=== PATIENT | female | born 1945 | race Caucasian/White ===

== ENCOUNTER 2018-06-10 11:23 | Inpatient (IN) ==
[2018-06-10] MEDS ORDERED: Sodium Chlor 0.9% Inj 250 ML ONE (12:12)
[2018-06-10] MEDS ORDERED: Lidocaine PF 1% Inj 5 ML Vial ONE (13:11)
[2018-06-10] MEDS ORDERED: Bupivacaine Liposomal PF 1.3% Inj 20 ML Vial ONE (13:11)
[2018-06-10] MEDS ORDERED: Bupivacaine 0.5% Inj 50 ML MDV Vial ONE (13:11)
[2018-06-10] MEDS ORDERED: Bupivacaine/Dextrose 0.75% Inj 2 ML Ampul ONE (13:28)
[2018-06-10] MEDS ORDERED: ceFAZolin 2 GM Premix Inj 2 GM/50 ML PIGGYBACK IV.SIG ONE (13:28)
[2018-06-10] MEDS ORDERED: Sodium Chlor 0.9% Inj 73.07 ML, Ropivacaine 0.5% PF Inj 24.63 ML, Ketorolac Inj 30 MG, ... P-ARTICULR SCH ×5 (13:30)
[2018-06-10] MEDS ORDERED: Chlorhexidine 4% Topical 120 APPLIC/120 ML Bottle TOPICAL SCH (13:30)
[2018-06-10] MEDS ORDERED: Propofol Inj 500 MG/50 ML Vial ONE (13:31)
[2018-06-10] MEDS ORDERED: Metoprolol Tartrate 25 MG Tablet PO ONE (13:38)
[2018-06-10] MEDS ORDERED: Chlorhexidine Gluconate 2% 1 Pack (2 Cloths) TOPICAL ONE (13:38)
[2018-06-10] MEDS ORDERED: Vancomycin Inj 1,000 MG in Sodium Chlor 0.9% Inj 250 ML IV.SIG SCH (14:00)
[2018-06-10] MEDS ORDERED: ceFAZolin 2 GM Premix Inj 2 GM/50 ML PIGGYBACK IV.SIG SCH (14:00)
[2018-06-10] MEDS ORDERED: Sodium Chlor 0.9% Inj 500 ML IV.SIG SCH (14:00)
[2018-06-10] MEDS ORDERED: Lidocaine PF 1% Inj 5 ML Syringe OTHER ONE (14:25)
[2018-06-10] MEDS ORDERED: Glycopyrrolate Inj 1 MG/5 ML Syringe IV.PUSH ONE (14:25)
[2018-06-10] MEDS ORDERED: Neostigmine Inj 5 MG/5 ML Syringe IV.PUSH ONE (14:25)
[2018-06-10] MEDS ORDERED: Post-op Orders (for Pharmacy) OTHER STA (16:51)
[2018-06-10] MEDS ORDERED: Morphine Inj 4 MG/ML Vial IV.PUSH PRN (16:51)
[2018-06-10] MEDS ORDERED: Bisacodyl 10 MG Supp RECTAL PRN (16:51)
[2018-06-10] MEDS ORDERED: fentaNYL Citrate Inj 100 MCG/2 ML Ampul ONE (16:54)
[2018-06-10] MEDS ORDERED: *morphine SULFATE 4 MG/ML PERIprocedure ONLY ONE ×2 (16:56→17:46)
--- NOTE | 2018-06-10 17:24 | XR ---
EXAM DATE: 06/10/2018 5:22 PM EST AGE/SEX: 72 years / Female INDICATIONS: Post op left knee. CLINICAL DATA: This is the patient's initial encounter. Patient reports that signs and symptoms have been present for 1 day and indicates a pain score of Nonresponsive. MEDICAL/SURGICAL HISTORY: None. None. COMPARISON: No prior exams available for comparison. FINDINGS: AP and lateral views of the knee following arthroplasty reveals a prosthesis in anatomic alignment. F racture is not appreciated. Large joint effusion is evident CONCLUSION: Status post total knee arthroplasty. Wilmer Farah MD FACR Electronically signed by: Wilmer Farah MD 06/10/2018 5:23 PM EST
--- NOTE | 2018-06-10 17:34 | MP ---
cc: Rm Romero MD, Jason MD DATE OF OPERATION: 06/10/2018 PREOPERATIVE DIAGNOSES: 1. Left knee moderately severe tricompartment osteoarthritis. 2. Obesity. POSTOPERATIVE DIAGNOSES: 1. Left knee moderately severe tricompartment osteoarthritis. 2. Obesity. PROCEDURE PERFORMED: Left total knee arthroplasty - cemented [employer]. SURGEON: Rm Romero MD STRANDING SUPERVISOR: Tiffany Crespo PA-C TOURNIQUET TIME: 54 minutes at 250 mmHg. ANESTHESIA: General, adductor canal saphenous nerve block, intraarticular block. COMPLICATIONS: None. SPECIMENS: None. DESCRIPTION OF PROCEDURE: My [facility] faculty assistant, Tiffany Crespo PA-C, was present for the entire surgical case. She was medically necessary for the entire case because of the complexity of the case and to facilitate the performance of the procedure. The TORCH HEATER at the back table did not have the skill set for this case to manipulate the instruments, e.g. multiple soft tissue retractors, trial implants and permanent implants, including bone cement. The patient was brought in the operating room and had satisfactory general endotracheal anesthesia by the Department of Anesthesia. Because of the patient's obesity, great care was made to protect all pressure points. The left lower extremity was prepped and draped in the usual sterile manner. The extremity was exsanguinated with elevation and the tourniquet inflated to 250 mmHg. Anterior exposure to the knee was made. A paramedian capsulotomy was performed. The patella was dislocated laterally. The patient was found to have moderately severe tricompartment osteoarthritis. The remaining portion of the medial and lateral meniscus removed. The anterior cruciate ligament and the posterior cruciate ligament were preserved. The prepatellar fat pad was surgically excised. Using the [employer]angu[employer] total knee arthroplasty system, IM guide was used on the distal femur for a 7 degree valgus cut to accept a 67.5 mm femoral component. Extramedullary guide was used for the proximal tibia and this was to accept a 75 mm tibial component. The patient's knee was well balanced in both flexion and in extension. The undersurface of the patella was removed to accept a 31 mm 3-pronged patellar prosthesis. All trial components were removed and preparation for cementing was made. Two packages of high viscosity bone cement were used. First, the tibial component was cemented, which was a 75 mm tibial component, followed by the femoral component, which was the 67.5 mm femoral component. A 12 x 75 mm polyethylene trial plastic was placed in the interspace and a 31 mm 3-pronged patellar prosthesis was cemented. The bone cement was allowed to harden for 13 minutes. All excess bone cement was removed. Local anesthesia was used and 100 mL of local anesthesia was provided by the Department of Pharmacy. The knee was irrigated with 4000 mL of sterile saline antibiotic solution. The bone cement were allowed to harden, and then the 12 x 75 mm polyethylene "lipped" plastic was assembled onto the tibial tray and appropriately locked with the clipping mechanism. The tourniquet was deflated. All bleeders were coagulated. The wound itself was dry. The wound was closed over two 1/8 inch Hemovac drains. The capsule and extensor mechanism were closed with multiple interrupted #2 Ti-Cron suture, the subcuticular layers with 0 Vicryl and 2-0 Vicryl and the skin approximated with skin kimberly. Sterile dressings were applied. The patient tolerated the procedure well and went to the recovery room in stable and satisfactory condition. MD DORIAN Caraballo/marysol , 04:38 PM , 04:49 PM
[2018-06-10] MEDS ORDERED: Verapamil SR 240 MG Tablet PO SCH (18:00)
[2018-06-10] MEDS: Senna/Docusate Sodium 8.6/50 MG Tablet PO SCH (20:04)
[2018-06-10] MEDS: ceFAZolin 1 GM Premix Inj 1 GM/50 ML FROZ.PIGGY IV.SIG SCH (20:04)
[2018-06-10] MEDS ORDERED: Zolpidem Tartrate 5 MG Tablet PO PRN (21:00)
[2018-06-11] MEDS: ceFAZolin 1 GM Premix Inj 1 GM/50 ML FROZ.PIGGY IV.SIG SCH ×2 (02:59→08:43)
[2018-06-11 05:46] LABS: Hematocrit 32.4 % (35.0-46.0); Hemoglobin 10.7 gm/dL (11.6-15.3)
--- NOTE | 2018-06-11 07:06 | P.PNOP ---
Subjective Interval history: POD#1 L TKR No c/o chest pain Explained operative findings;answered multiple questions Patient wishes to go home today Physical Exam Vital signs: Vital Signs 06/10/18 12:43 06/10/18 13:15 06/10/18 16:48 Temperature 98.1 F 97.7 F Pulse Rate 68 57 L 80 Respiratory Rate 20 16 Blood Pressure 154/70 H 128/56 L Pulse Oximetry 97 99 98 06/10/18 17:00 06/10/18 17:15 06/10/18 17:30 Temperature Pulse Rate 72 71 68 Respiratory Rate 16 16 16 Blood Pressure 126/62 125/59 L 126/60 Pulse Oximetry 97 97 96 06/10/18 17:45 06/10/18 17:48 06/10/18 20:00 Temperature 97.8 F 97.2 F L Pulse Rate 69 73 Respiratory Rate 17 17 Blood Pressure 127/59 L 121/59 L Pulse Oximetry 96 98 95 06/11/18 00:00 06/11/18 04:00 Temperature 97.7 F 97.5 F L Pulse Rate 70 74 Respiratory Rate 17 16 Blood Pressure 118/59 L 109/55 L Pulse Oximetry 94 L 95 Intake & Output 06/10/18 06/10/18 06/11/18 06:59 18:59 06:59 Intake Total 1700 / 1700 1100 / 1100 Output Total 100 / 100 140 / 140 Balance 1600 / 1600 960 / 960 Weight 81.1 kg 82.6 kg Intake: IV 50 / 50 1100 / 1100 LR 1000 mL Inj 1,000 ML @ 80 1000 / 1000 mls/hr IV.CONT .[id number] TAHMINA Rx# :[id number] Ancef 1 GM Premix Inj 1 gm In 100 / 100 50 ml @ 100 mls/hr IV.SIG Q6H TAHMINA Rx#:[id number] Ancef 2 GM Premix Inj 2 gm In 50 / 50 50 ml @ 100 mls/hr IV.SIG AUDIO TECHNICIAN TAHMINA Rx#:[id number] Anesthesia Amount 1650 / 1650 Output: Estimated Blood Loss 100 / 100 Wound Drainage 140 / 140 # 1 Left Knee 140 / 140 Other: # Voids 3 Date of Last Bowel Movement 06/09/18 Weight On Admission 81.1 kg Narrative: Dressings changed N/V intact No calf tenderness;negative missael's sign Results - Labs CBC & Chem 7: 06/11/18 04:18 Laboratory Results - last 24 hr 06/10/18 06/11/18 12:00 04:18 Hgb 10.7 L Hct 32.4 L Blood Type O Positive Antibody Screen Negative MTS Gel Crossmatch See Detail - Imaging Impressions Knee X-Ray 06/10/18 16:46 CONCLUSION: Status post total knee arthroplasty. Wilmer Farah MD FACR Assessment and Plan - Assessment and Plan Ortho stable Discharge home today C RN/PT aspirin 81mg BID,TEDS x 4 weeks for DVT/PE prophylaxsis
[2018-06-11] MEDS: Senna/Docusate Sodium 8.6/50 MG Tablet PO SCH (08:35)
[2018-06-11] MEDS ORDERED: Furosemide 20 MG Tablet PO SCH (09:00)
[2018-06-11] MEDS ORDERED: Sertraline 100 MG Tablet PO SCH (09:00)
--- NOTE | 2018-06-11 11:22 | P.DCO ---
- Physical Therapy Physical Therapy: Gait training, Safety evaluation, Transfer training, bed to chair Knee: Total knee, Protocol: Left, Full weight bearing Canvas Knee Splint: Other (only wear when sleeping at night x 4 weeks ) - Nursing RN: 3 days/week x 2 weeks Nursing: Dressing changes (clean incision with alcohol and apply dry, sterile dressing ) Additional instructions: aspirin 81 mg bid x 4 weeks dvt prop knee high teds during day time, may take off at night time - Certification Need for Home Health services: I have seen patient Swati Orourke on 06/11/18. My clinical findings support the need for the requested home health care services because: Need for Home Health Services: High risk of falls Homebound Certification: I certify that my clinical findings support that this patient is homebound because: Homebound Certification: Post-op weakness
[2018-06-11 13:10] VITALS: BP 108/52; PULSE 74; RESP 17; TEMP 97.2; O2SAT 93
== END 2018-06-11 17:14 | disposition home health service (06) ==
LOC: HSDI 11:23 → N06 17:59
PROVIDERS: ADMIT Orthopaedic Surgery Orthopaedic Surgery of the Spine; ATTEND Orthopaedic Surgery Orthopaedic Surgery of the Spine